=== PATIENT | female | born 1975 | race Caucasian/White ===

== ENCOUNTER 2019-11-03 21:55 | Emergency (ER) | payer MEDICAID, SELFPAY ==
[2019-11-03 22:00] VITALS: BP 116/72; PULSE 90; RESP 16; TEMP 37.1; O2SAT 96; BMI 21.7
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
[2019-11-04 00:49] VITALS: BP 126/81; PULSE 83; RESP 17; O2SAT 97
[2019-11-04] MEDS: ketorolac 30 mg/mL INJ IM (00:54)
[2019-11-04 01:15] VITALS: BP 121/72; PULSE 80; RESP 16; O2SAT 97
== END 2019-11-04 01:16 | disposition home or self-care (01) ==
PROVIDERS: Emergency Provider Physician Assistant
DX: S00.03XA Contusion of scalp, initial encounter (principal); Y04.2XXA Assault by strike against or bumped into by another person, initial encounter; F17.210 Nicotine dependence, cigarettes, uncomplicated
CPT/HCPCS: 12345; 70450; 96372; 99281; 99283; J1885

== ENCOUNTER 2019-11-09 05:22 | Inpatient (IN) | payer MEDICAID, SELFPAY ==
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
--- NOTE | 2019-11-09 05:27 | ECG_ITS ---
Measurements Intervals [place] Rate: 92 P: 65 CA: 176 QRS: 90 QRSD: 84 T: 55 QT: 355 QTc: 439 SINUS RHYTHM No previous ECG available for comparison Electronically Signed On 11-09-2019 9:31:55 CDT by Piedad Reid M.D. [email or web address]
[2019-11-09 05:28] VITALS: BP 126/78; PULSE 98; RESP 20; TEMP 36.6; O2SAT 96; BMI 22.1
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
[2019-11-09] MEDS: sodium chloride 0.9% 1,000 ML 100 ML IV (05:44)
[2019-11-09 05:55] LABS: Basophils # 0.1 10^3/uL (0.0-0.1); Basophils % 1.2 %; Eosinophils % 0.3 %; Hematocrit 41.9 % (37.0-47.0); Hemoglobin 13.6 g/dL (11.5-15.3); Lymphocytes # 2.1 10^3/uL (0.8-4.8); Lymphocytes % 27.2 %; Mean Corpuscular HGB Conc 32.5 g/dL (30.0-36.0); Mean Corpuscular Hemoglobin 31.6 pg (28.0-34.0); Mean Corpuscular Volume 97.4 fL (81-99); Monocytes # 0.6 10^3/uL (0.2-0.9); Monocytes % 7.3 %; Neutrophils % 63.7 %; Nucleated Red Blood Cells % 0 %; Platelet Count 360 10^3/cmm (130-400); Red Cell Distribution Width 14.4 % (12.1-15.1); White Blood Count 7.8 10^3/uL (4.0-10.0)
[2019-11-09 06:24] LABS: Carbamazepine Tegretol < 2.0 ug/mL (4.0-12.0); Lithium < 0.1 mmol/L (0.6-1.2); Phenytoin Dilantin < 0.8 ug/mL (10-20); Valproic Acid Level < 2.8 mcg/mL (50-100)
[2019-11-09 06:29] LABS: Alanine Aminotransferase 14 U/L (0-33); Albumin Level 4.7 g/dL (3.5-5.2); Alcohol Level 97 mg/dL (0-10); Alkaline Phosphatase 73 IU/L (35-105); Anion Gap 18.1 (5-19); Aspartate Amino Transferase 17 U/L (0-32); Blood Urea Nitrogen 15 mg/dL (6-20); Calcium 9.7 mg/dL (8.5-10.5); Carbon Dioxide 22 mmol/L (22-29); Chloride 101 mmol/L (98-107); Creatine Phosphokinase 129 U/L (26-192); Globulin 2.9 g/dL (1.3-4.6); Glucose 102 mg/dL (65-115); Magnesium 2.1 mg/dL (1.7-2.3); Osmolality Calculated 280 mOsm/kg (285-295); Potassium 4.1 mmol/L (3.5-5.1); Sodium 137 mmol/L (136-145); Thyroid Stimulating Hormone 0.63 uIU/mL (0.27-4.20); Total Bilirubin 0.2 mg/dL (0.15-1.2); Total Protein 7.6 g/dL (6.6-8.7)
[2019-11-09 06:32] LABS: Acetaminophen < 5.0 ug/mL (10-30); Salicylate < 0.3 mg/dL (3-10)
[2019-11-09] MEDS: iohexol 300 mg/mL 100 mL Btl IV (06:43)
[2019-11-09 06:46] LABS: Bilirubin Urine Neg (NEGATIVE); Blood Urine Neg (Negative); Glucose Urine UA Norm (Normal); Ketones Urine Negative (Negative); Leukocyte Esterase Urine Negative (Negative); Nitrate Urine Negative (Negative); Protein Urine Neg (Negative); Urine Appearance Clear (CLEAR); Urine Color Straw (Yellow); Urobilinogen Urine Norm (Negative); pH Urine 5 (5-7)
[2019-11-09 06:47] LABS: Amphetamines Screen Urine Negative (Negative); Barbiturates Screen Urine Negative (Negative); Benzodiazepines Screen Urine Negative (Negative); Cocaine Screen Urine Negative (Negative); Opiate Screen Urine Negative (Negative); PCP Screen Urine Negative (Negative); THC Screen Urine Positive (Negative)
[2019-11-09 06:48] LABS: Add Urine Culture? No; Bacteria Urine TRACE; RBC Urine RARE /hpf (0-2); WBC Urine RARE /hpf (0-5)
[2019-11-09 07:58] VITALS: BP 106/69; PULSE 93; RESP 17; O2SAT 94
[2019-11-09] MEDS: hyDROXYzine 25 mg Capsule 50 MG PO ×2 (08:42→18:29)
--- NOTE | 2019-11-09 08:44 | PC.NURSE ---
Addendum entered by Cathryn Diaz LPN 11/09/19 10:33: prn med effective no further c/o anxiety. pt asleep in bed in room ,resp even et unlabored Original Note: PRN VISTARIL 50 MG GIVEN PO PER PT C/O ANXIETY. PT HAS PRESSURED SPEECH, UPSET ABOUT BEING HERE IN THE HOSPITAL IN A ROOM WITH NO TV! WILL CONT TO MONITOR
--- NOTE | 2019-11-09 10:24 | PC.NURSE ---
medications verified by [facility] pharmacy in [facility] [place].
[2019-11-09] MEDS: acetaminophen 325 mg Tablet 650 MG PO (13:41)
[2019-11-09 14:00] VITALS: BP 116/84; PULSE 84; RESP 18; TEMP 36.3
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
[2019-11-09] MEDS: quetiapine 100 mg Tablet 200 MG PO (18:16)
--- NOTE | 2019-11-09 18:21 | PC.NURSE ---
REFUSED SCHEDULED SEROQUEL, PT STATED I DON'T TAKE THAT ANYMORE.
--- NOTE | 2019-11-09 18:25 | PC.NURSE ---
REFUSED SCHEDULED ZYVOX, PT COMMENTED I DON'T TAKE THAT
--- NOTE | 2019-11-09 18:29 | PC.NURSE ---
PRN VISTARIL 50 MG GIVEN PO PER PT C/O STATED ANXIETY. PT ISOLATING TO ROOM, NO OUTWARD S/S OF ANXIETY NOTED. PT HAS IRRITABLE AFFECT. WILL CONT TO MONITOR
[2019-11-09 20:12] VITALS: BP 123/62; PULSE 87; RESP 16; TEMP 36.6; O2SAT 95
[2019-11-10 06:00] VITALS: BP 93/62; PULSE 65; RESP 18; TEMP 36.6; O2SAT 95
--- NOTE | 2019-11-10 08:34 | PC.NURSE ---
refused scheduled zyvox
[2019-11-10] MEDS: hyDROXYzine 25 mg Capsule 50 MG PO ×2 (08:41→17:05)
[2019-11-10] MEDS: acetaminophen 325 mg Tablet 650 MG PO ×2 (08:41→17:02)
[2019-11-10] MEDS: NIFEdipine ER (24 hr) 30 mg Tablet PO (08:41)
[2019-11-10] MEDS: lurasidone 80 mg Tablet 40 MG PO (08:41)
[2019-11-10] MEDS: neomycin-poly-bacitracin oint 28 gm 1 APPLIC TOPICAL (08:42)
--- NOTE | 2019-11-10 08:43 | PC.NURSE ---
refused scheduled Lamictal
--- NOTE | 2019-11-10 08:44 | PC.NURSE ---
Addendum entered by Cathryn Diaz LPN 11/10/19 09:34: prn med effective no further c/o anxiety Original Note: PRN VISTARIL 50 MG GIVEN PO PER PT C/O ANXIETY. TEARFUL IN ROOM. WILL CONT TO MONITOR
[2019-11-10 13:28] VITALS: BP 92/57; PULSE 88; RESP 18; TEMP 36.8; O2SAT 95
--- NOTE | 2019-11-10 15:57 | PC.NURSE ---
refused scheduled Zyvox this evening
--- NOTE | 2019-11-10 17:05 | PC.NURSE ---
Addendum entered by Cathryn Diaz LPN 11/10/19 18:31: prn med effective no further c/o anxiety currently Original Note: PRN VISTARIL 50 MG GIVEN PO PER PT C/O STATED ANXIETY. NO OUTWARD S/S OF ANXIETY NOTED. WILL CONT TO MONITOR
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
[2019-11-10] MEDS: montelukast sodium 10 mg Tablet PO (20:29)
[2019-11-10] MEDS: trazodone 50 mg Tablet PO (20:30)
[2019-11-10 21:14] VITALS: BP 98/59; PULSE 70; RESP 17; TEMP 37; O2SAT 100
--- NOTE | 2019-11-10 23:19 | PC.NURSE ---
Pt given scheduled Singulair at HS as well as requested t\Trazodone for sleep.
[2019-11-11 06:00] VITALS: BP 115/71; PULSE 76; RESP 19; TEMP 36.6; O2SAT 100
[2019-11-11 08:09] VITALS: PULSE 82; RESP 17; O2SAT 97
[2019-11-11] MEDS: albuterol 8 gm MDI 2 PUFF INHALATION (08:09)
[2019-11-11] MEDS: acetaminophen 325 mg Tablet 650 MG PO ×2 (08:15→15:33)
[2019-11-11] MEDS: lurasidone 80 mg Tablet 40 MG PO (08:16)
[2019-11-11] MEDS: NIFEdipine ER (24 hr) 30 mg Tablet PO (08:16)
--- NOTE | 2019-11-11 08:18 | PC.NURSE ---
refused scheduled Lamictal & Zyvox this morning, pt stated she isn't taking those meds anymore.
[2019-11-11] MEDS: hyDROXYzine 25 mg Capsule 50 MG PO ×2 (08:20→15:34)
--- NOTE | 2019-11-11 08:21 | PC.NURSE ---
PRN VISTARIL 50 MG GIVEN PO PER PT C/O STATED ANXIETY. NO OUTWARD S/S OF ANXIETY NOTED. PT LAUGHING UP AT THE NURSES STATION WHILE IN CONVERSATION WITH ANOTHER FEMALE PATIENT. WILL CONT TO MONITOR.
--- NOTE | 2019-11-11 09:40 | PC.NURSE ---
PRN VISTARIL EFFECTIVE NO FURTHER C/O ANXIETY
[2019-11-11 12:28] VITALS: BP 116/66; PULSE 124; RESP 18; TEMP 37; O2SAT 98
--- NOTE | 2019-11-11 14:34 | P.PN_ITS ---
Subjective NPU Subjective: Interval history: When first she sees me the patient's is, I am happy now. She does look for a less wounded spiritually and emotionally. She acknowledges that she and her boyfriend went down the wrong path with alcohol. Medications: Reviewed: Yes Medication Review Details: Current Medications Acetaminophen (Tylenol) 650 mg PO Q4H PRN PRN Reason: MILD PAIN Last Admin: 11/11/19 08:15 Dose: 650 mg Documented by: Albuterol Sulfate (Ventolin) 2 puff INHALATION Q4H.RESPIRATORY PRN PRN Reason: SHORTNESS OF BREATH Last Admin: 11/11/19 08:09 Dose: 2 puff Documented by: Benztropine Mesylate (Cogentin) 1 mg PO BID PRN PRN Reason: Mild Extrapyramidal symptoms Camphor/Menthol/Phenol (Blistex) 1 applic TOPICAL Q1H PRN PRN Reason: DRYNESS Diphenhydramine HCl (Benadryl) 50 mg IM ONCE PRN PRN Reason: Severe Extrapyramidal Symptoms Diphenhydramine HCl (Benadryl) 50 mg IM Q4H PRN PRN Reason: Severe Aggression Haloperidol (Haldol) 5 mg PO Q4H PRN PRN Reason: AGITATION Haloperidol Lactate (Haldol Inj) 5 mg IM Q4H PRN PRN Reason: Severe Aggression Hydroxyzine Pamoate (Vistaril) 50 mg PO Q6H PRN PRN Reason: ANXIETY Last Admin: 11/11/19 08:20 Dose: 50 mg Documented by: Lamotrigine (Lamictal) 25 mg PO DAILY [facility] Last Admin: 11/11/19 08:17 Dose: Not Given Documented by: Linezolid (Zyvox Tablet) 600 mg PO BID [facility]; Protocol Last Admin: 11/11/19 08:17 Dose: Not Given Documented by: Loperamide HCl (Imodium Capsule) 2 mg PO Q6H PRN PRN Reason: DIARRHEA Lorazepam (Ativan) 2 mg IM Q4H PRN PRN Reason: Severe Aggression Lurasidone HCl (Latuda) 40 mg PO DAILY [facility] Stop: 11/14/19 08:59 Last Admin: 11/11/19 08:16 Dose: 40 mg Documented by: Lurasidone HCl (Latuda) 60 mg PO DAILY [facility] Montelukast Sodium (Singulair) 10 mg PO BEDTIME [facility] Last Admin: 11/10/19 20:29 Dose: 10 mg Documented by: Neomycin/Polymyxin/Bacitracin (Neosporin Oint Tube) 1 applic TOPICAL BEDTIME [facility] Last Admin: 11/10/19 08:42 Dose: 1 applic Documented by: Nicotine (Nicoderm 21 Mg Patch) 1 patch TRANSDERMA DAILY PRN PRN Reason: NICOTINE WITHDRAWAL Nicotine Polacrilex (Nicorette) 2 mg BUCCAL Q2H PRN PRN Reason: NICOTINE WITHDRAWAL Nifedipine (Procardia Xl) 30 mg PO DAILY [facility] Last Admin: 11/11/19 08:16 Dose: 30 mg Documented by: Non-Formulary Medication (Pilocarpine Hcl) 5 mg PO TID [facility] Last Admin: 11/11/19 13:32 Dose: Not Given Documented by: Non-Formulary Medication (Varenicline [Chantix Starting Month Box]) 0.5 each PO PER PKG DIR [facility] Olanzapine (Zyprexa Zydis) 5 mg PO Q4H PRN PRN Reason: Agitation/Psychosis Ondansetron HCl (Zofran) 4 mg PO Q6H PRN PRN Reason: NAUSEA AND VOMITING Trazodone HCl (Desyrel) 50 mg PO BEDTIME PRN PRN Reason: SLEEP Last Admin: 11/10/19 20:30 Dose: 50 mg Documented by: Mental Status Exam MSE Comments: The patient today is neat and well organized. She is not disheveled. Mood is far brighter and affect is appropriate. Thought processes are integrated and free of any racing, blocking or looseness of association. Speech is of normal rate and volume, without dysarthria, aprosody or pressure. Cognitive functions seem to be sharp. She is oriented and nonpsychotic. She d enies suicidal or homicidal ideation, plan or intent. Vitals/I&O/Wt Last Vital Signs Temp 98.6 F 11/11/19 12:28 Pulse 124 H 11/11/19 12:28 Resp 18 11/11/19 12:28 BP 116/66 11/11/19 12:28 Pulse Ox 98 11/11/19 12:28 Data NPU : 11/09/19 05:50 11/09/19 05:50 A&P Assessment and plan (1) Finger amputation, no complication: Monitor for complications and infection. Status: Acute (2) Sjogren's disease: Stable Status: Acute (3) Suicide attempt: Resolved Status: Acute (4) Thromboangiitis obliterans (Buerger's disease): Stable Status: Acute (5) Raynaud's phenomenon (by history or observed): Status: Acute (6) Depression: Status: Acute Qualifiers: Active/Remission status: currently active Depression Type: major depressive disorder Major depression episode severity: severe Major depression recurrence: recurrent Psychotic features: with psychotic features Qualified Code(s): F33.3 - Major depressive disorder, recurrent, severe with psychotic symptoms Involuntary Hold Information 96 Hour Hold: 96 Hour Involuntary Admission: No Attestations NPU Medical Necessity Statement*: Patient may be able to go home in 2 to 3 days Time Spent in Patient Care: Greater than 35 minutes (>than 50% of time spent in counselling and/or direct pt care on unit) . Coding Level of Care Code Acute Manager Bench for [facility] Fwd Diagnoses Finger amputation, no complication S68.119A Sjogren's disease M35.00 Suicide attempt T14.91XA Thromboangiitis obliterans (Buerger's disease) I73.1 Raynaud's phenomenon (by history or observed) I73.00 Depression F33.3 Active/Remission status: currently active Depression Type: major depressive disorder Major depression episode severity: severe Major depression recurrence: recurrent Psychotic features: with psychotic features
--- NOTE | 2019-11-11 15:35 | PC.NURSE ---
PRN VISTARIL 50 MG GIVEN PO PER PT C/O STATED ANXIETY. NO OUTWARD S/S OF ANXIETY NOTED. WILL CONT TO MONITOR
--- NOTE | 2019-11-11 15:44 | PC.NURSE ---
REFUSED SCHEDULED ZYVOX THIS EVENING
[2019-11-11 19:44] VITALS: BP 111/71; PULSE 99; RESP 17; TEMP 36.9; O2SAT 95
[2019-11-11] MEDS: neomycin-poly-bacitracin oint 28 gm 1 APPLIC TOPICAL (19:56)
[2019-11-11] MEDS: trazodone 50 mg Tablet PO (19:57)
[2019-11-11] MEDS: montelukast sodium 10 mg Tablet PO (19:57)
--- NOTE | 2019-11-11 23:39 | PC.NURSE ---
Pt given scheduled Singulair at HS along with Trazodone for sleep and neomycin ointment placed on chest wound.
[2019-11-12 06:00] VITALS: BP 111/61; PULSE 79; RESP 17; TEMP 36.2; O2SAT 95
[2019-11-12] MEDS: lurasidone 80 mg Tablet 40 MG PO (09:34)
[2019-11-12] MEDS: hyDROXYzine 25 mg Capsule 50 MG PO (09:34)
[2019-11-12] MEDS: NIFEdipine ER (24 hr) 30 mg Tablet PO (09:35)
--- NOTE | 2019-11-12 10:20 | PM.NDC ---
Diagnoses at Discharge Discharge Diagnosis (1) Finger amputation, no complication: Status: Acute Problem details: Left index and right middle and pinky fingers due to Raynaud's disease. (2) Sjogren's disease: Status: Acute Problem details: Patient on pilocarpine and a low pharmacotherapy. (3) Suicide attempt: Status: Acute Problem details: Person is now sober and rejects suicidal or homicidal ideation, plan or intent. (4) Thromboangiitis obliterans (Buerger's disease): Status: Acute (5) Raynaud's phenomenon (by history or observed): Status: Acute (6) Depression: Status: Acute Problem details: Mood is greatly improved. Qualifiers: Active/Remission status: currently active Depression Type: major depressive disorder Major depression episode severity: severe Major depression recurrence: recurrent Psychotic features: with psychotic features Qualified Code(s): F33.3 - Major depressive disorder, recurrent, severe with psychotic symptoms Reason for Visit Reason for Visit: Reason For Visit: SI Hospital Course Hospital Course On day 2 the patient is in the first stages of getting herself together. The psychological pain is less intense. She still grieves. On day 3 through the present she has progressively improved from her original despair. Now she is euthymic, free of suicidal or homicidal ideation plan or intent, and she is ready to go home. Involuntary Hold Information 96 Hour Hold: 96 Hour Involuntary Admission: No Mental Status Exam MSE Comments: The patient today is neat and well organized. She is not disheveled. Mood is far brighter and affect is appropriate. Thought processes are integrated and free of any racing, blocking or looseness of association. Speech is of normal rate and volume, without dysarthria, aprosody or pressure. Cognitive functions seem to be sharp. She is oriented and nonpsychotic. She denies suicidal or homicidal ideation, plan or intent. Discharge Data Data Completed and Pending: Completed Studies During Hospitalization Category Date Time Status CT chest w con* [id number] Stat Cat Scan 11/09/19 05:27 Completed Vitals: Last Vital Signs Temp 97.2 F L 11/12/19 06:00 Pulse 79 11/12/19 06:00 Resp 17 11/12/19 06:00 BP 111/61 11/12/19 06:00 Pulse Ox 95 11/12/19 06:00 Discharge Plan Discharge Patient Disposition: Home, Self-Care Condition: Stable Prescriptions: New Ventolin HFA 90 mcg/actuation Hfa Aerosol Inhaler 2 puff inhalation Q4H.RESPIRATORY PRN (Reason: Shortness Of Breath) 30 Days Qty: 1 RF: 1 Latuda 20 mg Tablet 40 mg PO DAILY 30 Days Qty: 30 RF: 1 Continued Singulair 10 mg Tablet 10 mg PO BEDTIME 30 Days Qty: 30 RF: 1 Discontinued lamotrigine [Lamictal] 25 mg Tablet 25 mg PO DAILY RF: 0 quetiapine [Seroquel] 200 mg Tablet 200 mg PO BID RF: 0 linezolid 600 mg Tablet 600 mg PO BID RF: 0 Chantix Starting Month Box 0.5 mg (11)- 1 mg (42) Tablets,Dose Pack 0 ea PO PER PKG DIR RF: 0 Latuda 20 mg Tablet 20 mg PO DAILY RF: 0 nifedipine 30 mg Tablet Extended Release 30 mg PO DAILY RF: 0 pilocarpine HCl 5 mg Tablet 5 mg PO TID RF: 0 Discharge Orders: Discharge Order (Routine); Ordered 11/12/19 Ordered By: Vlad Chu Referrals: [facility] [Other] (JOSÉ ANTONIO Gutierrez) [facility] [Other] (Mckenna Benton LMSW) [facility] [place] [Outside] (Your intake paperwork was sent to them. You will receive a call from scheduling to book your initial assessment which will be done over the phone.) Discharge Diet: Usual diet Discharge Activity: Increase activity as tolerated Activity Restrictions/Additional Instructions: Medicaid Transport ([employer]): For transportation to appointments call at least 5 days in advance of the appointment. When using Medicaid Transport/[employer] you will need the following information when requesting a ride: - name, date of , address, phone number, and Medicaid number -address, and phone number of where you are going; -date and time of the appointment; -any special needs, such as wheelchair van If for some reason the ride does not show up you may call the Where's My Ride number at [facility] [phone] [facility] [phone] Discharge Attestations NPU Time Spent in Discharge Care*: greater than 30 min Coding Level of Care Code Acute Glass Artist for Chg Fwd Diagnoses Finger amputation, no complication S68.119A Sjogren's disease M35.00 Suicide attempt T14.91XA Thromboangiitis obliterans (Buerger's disease) I73.1 Raynaud's phenomenon (by history or observed) I73.00 Depression F33.3 Active/Remission status: currently active Depression Type: major depressive disorder Major depression episode severity: severe Major depression recurrence: recurrent Psychotic features: with psychotic features
--- NOTE | 2019-11-12 11:13 | PC.SOCIAL ---
Addendum entered by LEELEE Rosales 11/12/19 11:37: Patient informed this worker she got ahold of her mother to come and get her. Medicaid ride was cancelled per her request. Original Note: Medicaid ride called, trip #[id number]. Should arrive between 11:15am-2:15pm.
[2019-11-12] MEDS: albuterol 8 gm MDI 2 PUFF INHALATION (11:15)
[2019-11-12 11:41] VITALS: BP 111/61; PULSE 79; RESP 17; TEMP 36.2; O2SAT 95
[2019-11-12 12:31] VITALS: PULSE 80; RESP 15; O2SAT 94
== END 2019-11-12 13:12 | disposition home or self-care (01) | DRG 885 ==
LOC: ER 07:25 → NP 07:52
PROVIDERS: Emergency Medicine
DX: F33.3 Major depressive disorder, recurrent, severe with psychotic symptoms (principal); R45.851 Suicidal ideations; S21.119A Laceration without foreign body of unspecified front wall of thorax without penetration into thoracic cavity, initial encounter; I73.00 Raynaud's syndrome without gangrene; Z91.5 Personal history of self-harm; Z89.022 Acquired absence of left finger(s); Z89.021 Acquired absence of right finger(s); I73.1 Thromboangiitis obliterans [Buerger's disease]; M35.00 Sjogren syndrome, unspecified; X78.8XXA Intentional self-harm by other sharp object, initial encounter
CPT/HCPCS: 12345; 71260; 80053; 80156; 80164; 80178; 80185; 80306; 80307; 81001; 82550; 83735; 84443; 85025; 93005; 94640; 96361; 96372; 99285; J7030; Q9967